=== PATIENT | male | born 1970 | race Caucasian/White ===

== ENCOUNTER 2020-06-30 16:51 | Outpatient (REF) | payer MEDICAID, SELFPAY ==
[2020-06-30 23:18] LABS: COMMENT (LAB VIEW ONLY) 98.52 mg/dL; Microalb ug/mg Crea 14.7 ug/mg Cr
== END 2020-06-30 17:11 ==
LOC: NCHCN 16:51
PROVIDERS: PCP Internal Medicine; Visit Provider Internal Medicine
DX: E11.9 Type 2 diabetes mellitus without complications (principal)
CPT/HCPCS: 82043; 82570

== ENCOUNTER 2020-07-30 10:18 | Outpatient (REF) | payer MEDICAID, SELFPAY ==
[2020-08-02 23:53] LABS: Patient Race White; SARS-CoV-2 RNA Undetected (Undetected); SARS-CoV-2 Specimen Source Nasal
== END 2020-07-30 10:38 ==
LOC: NCHCN 10:18
PROVIDERS: PCP Internal Medicine; Visit Provider Internal Medicine
DX: R05 Cough (principal); Z20.828 Contact with and (suspected) exposure to other viral communicable diseases
CPT/HCPCS: U0003

== ENCOUNTER 2022-06-22 18:17 | Outpatient (REF) | payer MEDICAID, SELFPAY ==
[2022-06-22 20:04] LABS: Anion Gap 10.4 mmol/L (3-11); BUN 17 mg/dL (7-18); CO2 29.6 mmol/L (21.0-32.0); Calcium 9.5 mg/dL (8.5-10.1); Chloride 100 mmol/L (98-107); Glucose 199 mg/dL (74-106); LDL CHOLESTEROL 70 mg/dL (<100); Potassium 4.1 mmol/L (3.5-5.1); Sodium 140 mmol/L (136-145)
== END 2022-06-22 18:18 | disposition home or self-care (01) ==
LOC: NCHCN 18:17
PROVIDERS: PCP Internal Medicine; Visit Provider Internal Medicine
DX: E11.9 Type 2 diabetes mellitus without complications (principal); F17.210 Nicotine dependence, cigarettes, uncomplicated; I80.02 Phlebitis and thrombophlebitis of superficial vessels of left lower extremity
CPT/HCPCS: 80048; 83721

== ENCOUNTER 2023-04-27 01:51 | Outpatient (CLI) | payer MEDICAID, SELFPAY ==
--- NOTE | 2023-05-03 23:38 | PDOC.EEG_ITS ---
Neurology EEG EEG: [facility] Department of Neurology EEG REPORT Date of Recordin04/27/23 Interpreting Physician: Dr. Kaycee Chavez PCP/Referring Provider: Dr. Segura Reason for study: Mr. 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 Current Medications: ToprolXL 25 mg qd Trulicity 3 mg qweek Glipizide 10 mg qd Aspirin 81 mg qd Amlodipine 5 mg qd Atorvastatin 20 mg qd Viagra 100 mg PRN Metformin 1000 mg bid METHODS: A 21 channel digitized electroencephalogram was performed in the [facility] Clinical Neurophysiology Laboratory. The 10/20 international system of electrode placement was used and bipolar and referential electrode montages were recorded. In addition to EEG the patient was monitored for EKG and lateral/vertical eye movements. Activation procedures of photic stimulation and hyperventilation were performed if applicable. Video was used during activation procedures and during events where applicable. The duration of the recording was 30 minutes. DESCRIPTION OF EEG: The patient was noted to be awake, drowsy, and asleep during the recording. During maximal wakefulness a 10-Hz posterior background rhythm was present which was well-modulated, symmetrical, reactive to eye opening, and of moderate voltage. With eye opening the background activity changed to a low voltage mixture of alpha, beta, and occasional theta range frequencies. Faster frequencies were present in the bilateral anterior head regions. There was a normal anterior-posterior voltage gradient. During drowsiness, there was attenuation of the posterior dominant background rhythm and vertex waves. Stage II sleep was present with symmetrical sleep spindles, K-complexes, and vertex waves. Activating Procedures: Photic stimulation was performed which produced a symmetrical posterior driving response at various flash frequencies. Hyperventilation was performed with poor effort and produced no physiological slowing of the background. EKG: EKG revealed at times apparent sinus block with pauses of up to 1.5seconds. INTERPRETATION: This EEG is normal during the awake and sleep states as well as during photic stimulation and hyperventilation. EKG changes as above. PRIOR EEG: none CLINICAL CORRELATION: No focal regions of cerebral dysfunction or epileptiform activity was present. Epilepsy remains a clinical diagnosis and a normal EEG does not rule out epilepsy. Please note EKG findings. Clinical correlation is advised. Kaycee Chavez MD
== END 2023-04-27 01:52 | disposition home or self-care (01) ==
LOC: RT 01:51
PROVIDERS: PCP Internal Medicine; Visit Provider Internal Medicine
DX: R55 Syncope and collapse (principal); R06.4 Hyperventilation
CPT/HCPCS: 95819

== ENCOUNTER 2023-10-31 19:00 | Outpatient (REF) | payer OTHER, SELFPAY ==
[2023-10-31 20:26] LABS: Hemoglobin A1C 7.4 % (<5.7)
[2023-10-31 20:28] LABS: AST 11 U/L (15-37); Anion Gap 9.6 mmol/L (3-11); BUN 13 mg/dL (7-18); CO2 28.4 mmol/L (21.0-32.0); Calculated LDL 77 mg/dL (<100); Chloride 101 mmol/L (98-107); Cholesterol 140 mg/dL (<200); Estimated GFR 91.12 (mL/min/1.73m2); Glucose 140 mg/dL (74-106); HDL Cholesterol 38 mg/dL (40-60); Potassium 3.6 mmol/L (3.5-5.1); Sodium 139 mmol/L (136-145); Triglyceride 125 mg/dL (<150)
[2023-10-31 21:02] LABS: Creatine Kinase 88 U/L (39-308)
== END 2023-10-31 19:01 | disposition home or self-care (01) ==
LOC: NCHCN 19:00
PROVIDERS: PCP Internal Medicine; Visit Provider Internal Medicine
DX: E11.9 Type 2 diabetes mellitus without complications (principal)
CPT/HCPCS: 80048; 80061; 82550; 83036; 84450

== ENCOUNTER 2025-01-16 21:44 | Outpatient (REF) | payer OTHER, SELFPAY ==
[2025-01-16 19:30] LABS: HCT 45.1 % (40.0-50.0); HGB 15.2 g/dL (13.5-17.5); MCH 30.2 pg (27.0-33.0); MCHC 33.7 % (32.0-36.0); MCV 90 fL (80-95); MPV 9.2 fL (8.0-11.0); Platelet Count 391 10^3/uL (130-400); RBC 5.04 10^6/uL (4.36-5.78); RDW 11.9 % (11.8-14.1); RDW-SD 38.5 fL; WBC 9.68 10^3/uL (4.4-10.8)
[2025-01-16 19:46] LABS: ALT 38 U/L (16-63); AST 22 U/L (15-37); Albumin 4.4 g/dL (3.4-5.0); Alkaline Phosphatase 150 U/L (46-116); Anion Gap 6.8 mmol/L (3-11); BUN 11 mg/dL (7-18); Bilirubin, Total 0.4 mg/dL (0.2-1.0); CO2 28.2 mmol/L (21.0-32.0); CREATININE 1.2 mg/dL (0.70-1.30); Calcium 9.8 mg/dL (8.5-10.1); Chloride 104 mmol/L (98-107); Estimated GFR 72.31 (mL/min/1.73m2); Ferritin 316 ng/mL (26-388); Glucose 289 mg/dL (74-106); Potassium 4.2 mmol/L (3.5-5.1); Sodium 139 mmol/L (136-145); TSH 1.12 uIU/mL (0.36-3.74)
[2025-01-16 20:12] LABS: NT-proBNP 33 pg/mL (<300)
== END 2025-01-16 21:45 | disposition home or self-care (01) ==
LOC: NCHCN 21:44
PROVIDERS: PCP Internal Medicine; Visit Provider Internal Medicine
DX: R06.00 Dyspnea, unspecified (principal); D64.9 Anemia, unspecified
CPT/HCPCS: 80053; 85027; 82728; 83880; 84443